=== PATIENT | male | born 1985 | race Caucasian/White ===

== ENCOUNTER 2023-06-07 21:35 | Emergency (ER) | payer SELFPAY ==
[2023-06-07] MEDS ORDERED: Fluorescein Opthalmic Strip ONE (21:46)
[2023-06-07] MEDS ORDERED: Tetracaine 0.5% PF 4 ML BOT ONE (21:47)
[2023-06-07] MEDS ORDERED: Ciprofloxacin 0.3% Ophth Soln 2.5 ml Bottle ONE (22:04)
== END 2023-06-07 22:16 | disposition home or self-care (01) ==
LOC: MADERS 21:35
DX: T15.01XA Foreign body in cornea, right eye, initial encounter (principal); W45.8XXA Other foreign body or object entering through skin, initial encounter
CPT/HCPCS: 99283